=== PATIENT | female | born 1985 | race African-American/Black ===

== ENCOUNTER 2016-10-30 03:33 | Emergency (ER) | payer MEDICAID, MEDICARE ==
[~2016-10-30] VITALS: Ht 165.1 cm; Wt 80.1 kg
[2016-10-30] MEDS ORDERED: ONDANSETRON HCL 4MG/2ML VIAL IM ONE (06:45)
[2016-10-30] MEDS ORDERED: MORPHINE SULFATE 10 MG/ML CPJ IM ONE (06:45)
[2016-10-30 07:02] VITALS: BP 127/66
== END 2016-10-30 07:41 | disposition home or self-care (01) ==
LOC: ER 05:47
DX: G89.21 Chronic pain due to trauma (principal); M79.662 Pain in left lower leg; S81.832S Puncture wound without foreign body, left lower leg, sequela; X95.9XXS Assault by unspecified firearm discharge, sequela; Y92.9 Unspecified place or not applicable; F12.90 Cannabis use, unspecified, uncomplicated; I10 Essential (primary) hypertension; Z86.59 Personal history of other mental and behavioral disorders
CPT/HCPCS: 81025; 96372; 99284; J2270; J2405; Z7610

== ENCOUNTER 2018-06-30 02:46 | Emergency (ER) | payer MEDICAID, MEDICARE ==
[~2018-06-30] VITALS: Ht 165.1 cm; Wt 78.0 kg
[2018-06-30] MEDS ORDERED: MORPHINE SULFATE 4 MG/ML CPJ (NOT FOR IM USE) IV ONE ×2 (04:00→04:45)
[2018-06-30] MEDS ORDERED: ONDANSETRON HCL 4MG/2ML INJ IV ONE (04:00)
[2018-06-30] MEDS ORDERED: DIPHENHYDRAMINE 50MG/ML VIAL IV ONE (04:45)
[2018-06-30] MEDS ORDERED: KETOROLAC 30MG/ML VIAL IV ONE (06:30)
[2018-06-30] MEDS ORDERED: FENTANYL CITRATE/PF 50MCG/ML 2ML VIAL IV ONE (07:00)
[2018-06-30 08:13] VITALS: BP 145/91
== END 2018-06-30 08:15 | disposition home or self-care (01) ==
LOC: ER 02:46
DX: S82.841A Displaced bimalleolar fracture of right lower leg, initial encounter for closed fracture (principal); S92.351A Displaced fracture of fifth metatarsal bone, right foot, initial encounter for closed fracture; I10 Essential (primary) hypertension; J45.909 Unspecified asthma, uncomplicated; F12.10 Cannabis abuse, uncomplicated; V43.52XA Car driver injured in collision with other type car in traffic accident, initial encounter; Y93.89 Activity, other specified; Y92.488 Other paved roadways as the place of occurrence of the external cause; Y99.8 Other external cause status
CPT/HCPCS: 29515; 73590; 73610; 73630; 81025; 96374; 96375; 96376; 99283; J1200; J1885; J2270; J2405; J3010

== ENCOUNTER 2018-07-06 08:20 | Emergency (ER) | payer MEDICARE ==
[~2018-07-06] VITALS: Ht 165.1 cm; Wt 75.0 kg
[2018-07-06 08:25] VITALS: BP 143/96
== END 2018-07-06 14:57 | disposition left against medical advice (07) ==
LOC: ER 08:33
DX: Z53.21 Procedure and treatment not carried out due to patient leaving prior to being seen by health care provider (principal)